=== PATIENT | female | born 1945 | race Caucasian/White ===

== ENCOUNTER 2017-05-13 22:02 | Emergency (ER) | payer OTHER ==
[~2017-05-13 22:02] MED LIST: ATENOLO PO; CITALOPRAM HYDR20 MG PO; ECO81 PO; HYD25 PO; LORAZEPAM1 PO; PANTOPRAZOLE SO40 MG PO; PREDNISON PO; SING10 PO; VITAMIN D32000 I1 PO
[2017-05-14 01:24] VITALS: BP 155/86
== END 2017-05-14 01:24 | disposition home or self-care (01) ==
LOC: ED 22:02
DX: M47.9 Spondylosis, unspecified (principal); Z91.040 Latex allergy status; Z88.5 Allergy status to narcotic agent
CPT/HCPCS: 82962; J1885

== ENCOUNTER → 2019-06-06 | Outpatient (CLI) | payer OTHER | END | disposition home or self-care (01) | LOC: RD 11:52 | DX: S00.93XA Contusion of unspecified part of head, initial encounter (principal); X58.XXXA Exposure to other specified factors, initial encounter; Y92.9 Unspecified place or not applicable ==

== ENCOUNTER 2020-05-25 23:12 | Emergency (ER) | payer OTHER ==
[~2020-05-25] VITALS: Ht 154.9 cm; Wt 97.5 kg
[2020-05-25 23:14] VITALS: Ht 154.9 cm; Wt 97.5 kg
[2020-05-26 01:15] LABS: BASOPHIL % 0.6 % (0-2); PLATELET COUNT 143 x10^3mcL (130-400); RED CELL DISTRIBUTION WIDTH 18.1 % (11.5-14.5)
[2020-05-26 01:49] LABS: microscopic required? YES; urine erythrocyte TRACE (NEGATIVE)
[2020-05-26 01:54] LABS: ALKALINE PHOSPHATASE 84 U/L (46-116); ALT/SGPT 15 U/L (14-59); AST/SGOT 8 U/L (15-37); BILIRUBIN TOTAL 0.2 mg/dL (0.20-1.00); CARBON DIOXIDE 29.2 mmol/L (21-32); CHLORIDE SERUM 109 mmol/L (98-107); CREATININE SERUM 1.1 mg/dL (0.6-1.0); GLUCOSE SERUM 96 mg/dL (74-106); LIPASE 124 IU/L (73-393); SODIUM SERUM 142 mmol/L (136-145)
[2020-05-26 02:02] LABS: ALBUMIN 2.9 g/dL (3.4-5.0); TOTAL PROTEIN, SERUM 5.7 g/dL (6.4-8.2)
[2020-05-26 02:03] LABS: POTASSIUM SERUM 2.8 mmol/L (3.5-5.1)
[2020-05-26 06:04] VITALS: BP 133/57
== END 2020-05-26 06:06 | disposition home or self-care (01) ==
LOC: ED 23:12
PROVIDERS: Emergency Medicine
DX: I48.0 Paroxysmal atrial fibrillation (principal); R07.89 Other chest pain; E87.6 Hypokalemia; R19.7 Diarrhea, unspecified; J44.9 Chronic obstructive pulmonary disease, unspecified; I10 Essential (primary) hypertension; Z85.118 Personal history of other malignant neoplasm of bronchus and lung; Z88.5 Allergy status to narcotic agent; Z91.040 Latex allergy status
CPT/HCPCS: J3480; Q0092